=== PATIENT | male | born 1955 | race Caucasian/White ===

== ENCOUNTER 2019-02-25 10:15 | Emergency (ER) | payer OTHER ==
[~2019-02-25] VITALS: Ht 193 cm; Wt 146.6 kg
[2019-02-25 10:23] VITALS: TEMP 98.5
[2019-02-25 11:06] LABS: BASO % 0.8 % (0.0-2.0); EOS # 0.2 (0.0-0.7); GRAN # 2.5 (1.4-6.5); GRAN % 47.2 % (42.2-75.2); HEMATOCRIT 46.6 % (42.0-52.0); LYMPH # 1.8 (1.2-3.4); LYMPH % 34.5 % (20.0-51.0); MEAN CELL VOLUME 89 fl (80.0-100.0); MEAN CORPUSCULAR HEMOGLOBIN 31 pg (27.0-31.0); MEAN CORPUSCULAR HGB CONC 34 g/dl (33.0-37.0); MEAN PLATELET VOLUME 9.7 fl (7.4-10.4); MONO # 0.7 (0.1-0.6); MONO % 12.9 % (1.7-9.3); PLATELET COUNT 140 K/mm3 (130-400); RED BLOOD COUNT 5.24 M/mm3 (4.20-5.60); REDCELL DISTRIBUTION WIDTH-CV 12.5 % (11.5-14.5)
[2019-02-25] MEDS ORDERED: TOPROL XL100 MG PO (11:09)
[2019-02-25] MEDS ORDERED: NIACIN 100100 MG/TAB PO (11:09)
[2019-02-25] MEDS ORDERED: ZOCOR 40MG40 MG PO (11:09)
[2019-02-25] MEDS ORDERED: VITAMIN D31000 I1 PO (11:10)
[2019-02-25] MEDS ORDERED: ASPIRIN 81M81 MG/TA2 PO (11:10)
[2019-02-25] MEDS ORDERED: GLUCOSAMIN 500 PO (11:11)
[2019-02-25 11:16] LABS: ALANINE AMINOTRANSFERASE 37 U/L (21-72); ALBUMIN 4.3 gm/dL (3.5-5.0); ALKALINE PHOSPHATASE 74 U/L (50-136); ANION GAP 10 mmol/L (7-16); AST,SGOT 36 U/L (15-37); BILIRUBIN,TOTAL 0.6 mg/dL (0.0-1.0); BLOOD UREA NITROGEN 13 mg/dL (9-20); CALCIUM 8.8 mg/dL (8.4-10.2); CARBON DIOXIDE 27 mmol/L (22-30); CHLORIDE 103 mmol/L (98-107); CREATININE, serum 0.81 (0.66-1.25); GLUCOSE 129 mg/dL (74-106); POTASSIUM 4.4 mmol/L (3.4-5.0); SODIUM 140 mmol/L (137-145); TOTAL PROTEIN 7.2 gm/dL (6.4-8.2)
[2019-02-25 11:32] LABS: TROPONIN-I < 0.012 ng/mL (0.000-0.035)
[2019-02-25 12:45] VITALS: BP 130/98; PULSE 60
== END 2019-02-25 12:45 | disposition home or self-care (01) ==
LOC: COL.ER 10:15
PROVIDERS: Emergency Medicine
DX: R55 Syncope and collapse (principal); I10 Essential (primary) hypertension; Z79.82 Long term (current) use of aspirin
CPT/HCPCS: J7030